=== PATIENT | female | born 1935 | race Caucasian/White ===

== ENCOUNTER 2021-09-23 13:52 | Emergency (ER) | payer OTHER ==
[~2021-09-23] VITALS: Ht 157.5 cm; Wt 50.0 kg
[2021-09-23 13:58] VITALS: BP 136/84
[2021-09-23] MEDS ORDERED: ASPI-1497 PO (14:01)
[2021-09-23] MEDS ORDERED: BACITRACIN ZINC OINT UDPKT TOP ONE (15:45)
[2021-09-23] MEDS ORDERED: TETANUS, DIPHTHERIA, PERTUSSIS VAC/PF 0.5ML (>10YR OLD) IM ONE (15:45)
[2021-09-23] MEDS ORDERED: LIDOCAINE HCL/EPINEPHRINE 1%-EPI 1:100,000 50 ML VIAL INFIL ONE (19:00)
[2021-09-23] MEDS ORDERED: LIDOCAINE HCL/EPINEPHRINE 1%-EPI 1:100,000 10 ML VIAL INFIL NR (19:15)
== END 2021-09-23 20:27 | disposition home or self-care (01) ==
LOC: ER 14:39
DX: S05.42XA Penetrating wound of orbit with or without foreign body, left eye, initial encounter (principal); W18.39XA Other fall on same level, initial encounter; Y93.89 Activity, other specified; Y92.89 Other specified places as the place of occurrence of the external cause; Y99.8 Other external cause status; Z88.0 Allergy status to penicillin; I10 Essential (primary) hypertension
CPT/HCPCS: 12011; 70450; 90471; 90715; 99284; J3490; A4315